=== PATIENT | female | born 1960 | race Caucasian/White ===

== ENCOUNTER 2022-03-02 07:46 | Observation (INO) | payer OTHER ==
[2022-03-02 08:25] LABS: #Basophils 0.1 10x3/uL (0.0-0.2); #Eosinphils 0.3 10x3/uL (0.0-0.5); #Monocytes 0.6 10x3/uL (0.0-1.1); %Basophils 0.5 % (0.0-2.0); %Eosinophils 2.4 % (0.0-6.0); %Lymphocytes 9.1 % (18.0-47.0); %Monocytes 5.7 % (0.0-10.0); %Neutrophils 82.1 % (40.0-75.0); Hemoglobin 12.2 g/dL (12.0-15.5); Mean Corpuscular HGB CONC 32.9 g/dL (32.0-36.0); Mean Corpuscular Hemoglobin 30.1 pg (27.0-33.0); Mean Corpuscular Volume 91.6 fl (81.6-98.3); Mean Platelet Volume 9.7 fl (7.4-10.4); Platelet Count 172 10x3/uL (150-450); RBC Distribution Width 13.2 % (11.5-14.5); Red Blood Cell (RBC) Count 4.05 10x6/uL (3.90-5.03); White Blood Cell (WBC) Count 10.9 10x3/uL (3.5-10.5)
[2022-03-02] MEDS ORDERED: Bupivacaine 0.25% HCL 30 ML VIAL ONE (08:52)
[2022-03-02 09:01] LABS: SARS-CoV-2 NAA Rapid Test Not Detected (NotDetected)
[2022-03-02] MEDS ORDERED: Fentanyl 100 MCG/2 ML VIAL ONE ×2 (09:28→10:37)
[2022-03-02] MEDS ORDERED: PROPOFOL 20 ML ONE (09:28)
[2022-03-02] MEDS ORDERED: Lidocaine 2% PF 5 ML VIAL ONE (09:32)
[2022-03-02] MEDS ORDERED: Ondansetron PF 4 MG/2 ML Vial ONE (09:51)
[2022-03-02] MEDS ORDERED: ePHEDrine Sulfate 50 MG/10 ML VIAL ONE (09:51)
[2022-03-02] MEDS ORDERED: Dexamethasone 4 mg/ml Vial ONE (09:51)
[2022-03-02] MEDS: HYDROcodone/Acetaminophen 5/325 mg Tablet PO PRN ×3 (12:32→20:01)
[2022-03-02] MEDS ORDERED: Morphine 4 MG/ML VIAL ONE (12:43)
[2022-03-02] MEDS ORDERED: Morphine 2 MG/ML VIAL SLOW IVP SCH (12:45)
[2022-03-02] MEDS: Morphine 2 MG/ML VIAL SLOW IVP PRN ×4 (14:09→23:53)
[2022-03-03] MEDS: Morphine 2 MG/ML VIAL SLOW IVP PRN (01:52)
[2022-03-03 08:14] VITALS: BP 139/65; TEMP 98.8
== END 2022-03-03 10:30 | disposition home or self-care (01) ==
LOC: CSHERS 07:46 → CSHPED 11:39
PROVIDERS: ADMIT Obstetrics & Gynecology; ATTEND Obstetrics & Gynecology
PROC: 2Y44X5Z Packing of Female Genital Tract using Packing Material (ICD-10-PCS; principal; 2022-03-02)
DX: N93.9 Abnormal uterine and vaginal bleeding, unspecified (principal); S30.814A Abrasion of vagina and vulva, initial encounter; Z79.899 Other long term (current) drug therapy; Z91.040 Latex allergy status; Z20.822 Contact with and (suspected) exposure to COVID-19; X58.XXXA Exposure to other specified factors, initial encounter
CPT/HCPCS: 86900; 86901; 99284; J1100; J2001; J2270; J2405; J2704; J3010; S0020